=== PATIENT | female | born 1985 | race Caucasian/White ===

== ENCOUNTER 2024-09-28 07:05 | Emergency (ER) | payer SELFPAY ==
[2024-09-28 07:11] VITALS: BP 122/63; PULSE 98; RESP 16; TEMP 36.6; O2SAT 100
--- NOTE | 2024-09-28 07:57 | PC.NURSE ---
Pt states dentist called her and wants her to come to his office rather than have Xray. Pt left.
== END 2024-09-28 08:11 | disposition left against medical advice (07) ==
DX: T18.9XXA Foreign body of alimentary tract, part unspecified, initial encounter (principal)
CPT/HCPCS: 99199

== ENCOUNTER 2025-02-01 11:32 | Outpatient (CLI) | payer OTHER, SELFPAY ==
--- NOTE | ~2025-02-01 | MM_ITS ---
EXAMINATION: MM screening jazmyn BI w aparna HISTORY: Screening TECHNIQUE: Craniocaudal and mediolateral oblique 3-D tomosynthesis images were obtained and synthetic 2-D images were generated. CAD analysis was submitted and interpreted. COMPARISON: No prior mammogram is available for comparison at this institution. BREAST PARENCHYMAL COMPOSITION: Dense: The breasts are heterogeneously dense, which may obscure small masses FINDINGS: There is no evidence of suspicious mass, calcification, or architectural distortion to sugg est malignancy in either breast. There has been no suspicious interval change. IMPRESSION: 1. No mammographic evidence of malignancy. 2. Recommend routine screening mammography in one year. BI-RADS Category 1: Negative Reviewed, dictated and finalized at location B.
== END 2025-02-01 11:33 | disposition home or self-care (01) ==
LOC: MICIMG 11:36
PROVIDERS: PCP Obstetrics & Gynecology Gynecology; Visit Provider Obstetrics & Gynecology Gynecology
DX: Z12.31 Encounter for screening mammogram for malignant neoplasm of breast (principal)
CPT/HCPCS: 77063; 77067